=== PATIENT | female | born 1985 | race American Indian/Alaskan Native ===

== ENCOUNTER 2019-10-04 09:28 | Emergency (ER) | payer SELFPAY ==
[2019-10-04] MEDS ORDERED: TETANUS,DIPH,PERTUSS(ACELL) VACCINE 0.5 ML SYRINGE IM ONE (09:42)
[2019-10-04] MEDS ORDERED: LET TOPICAL (LIDOCAINE/EPINEPHRINE/TETRACAINE) 3 ML TP ONE (09:42)
--- NOTE | 2019-10-04 09:47 | Emergency Department Report ---
ED General Adult HPI - General Chief complaint: Fall Stated complaint: RT EYE CUT Time Seen by Provider: 10/04/19 09:41 Source: patient Mode of arrival: Ambulatory Limitations: No Limitations - History of Present Illness Initial comments: 33-year-old -Beninese female patient complains of right facial laceration after falling in the toe about 1.5 hours ago. She denies any loss of consciousness, headaches, vision changes, dizziness, nausea/vomiting, memory loss, or use of blood thinners. She is unsure about her last tetanus shot. She rates the pain at a 2/10 in severity. -: Sudden Location: face Radiation: non-radiation Severity scale (0 -10): 2 Consistency: constant Treatments Prior to Arrival: none - Related Data Allergies Allergy/AdvReac Type Severity Reaction Status Date / Time No Known Allergies Allergy Unverified 10/04/19 09:34 ED Review of Systems ROS: Stated complaint: RT EYE CUT Other details as noted in HPI Comment: All other systems reviewed and negative Skin: as per HPI ED Past Medical Hx - Past Medical History Previous Medical History?: No - Surgical History Additional Surgical History: , biopsy - Social History Smoking Status: Current Every Day Smoker Substance Use Type: None ED Physical Exam - General Limitations: No Limitations General appearance: alert, in no apparent distress - Head Head exam: Present: normocephalic - Expanded Head Exam Expanded Head exam: Present: laceration (at end of right eyebrow about 3 cm in size, nonbleeding). Absent: contusion, racoon eyes, neves's sign - Eye Eye exam: Present: normal appearance, PERRL, EOMI. Absent: conjunctival injection - Neck Neck exam: Present: normal inspection - Respiratory Respiratory exam: Present: normal lung sounds bilaterally. Absent: respiratory distress - Cardiovascular Cardiovascular Exam: Present: regular rate, normal rhythm - GI/Abdominal GI/Abdominal exam: Present: soft. Absent: tenderness - Rectal Rectal exam: Present: deferred - Extremities Exam Extremities exam: Present: full ROM - Back Exam Back exam: Present: full ROM. Absent: paraspinal tenderness, vertebral tenderness - Neurological Exam Neurological exam: Present: alert, oriented X3, CN II-XII intact, normal gait. Absent: motor sensory deficit - Psychiatric Psychiatric exam: Present: normal affect, normal mood - Skin Skin exam: Present: warm, dry, normal color. Absent: rash ED Course Vital Signs 10/04/19 09:34 Temperature 98.1 F Pulse Rate 86 Respiratory 18 Rate Blood Pressure 179/108 O2 Sat by Pulse 100 Oximetry - Laceration /Wound Repair Face Wound Location: face Wound's Depth, Shape: linear Wound Explored: no foreign body removed Irrigated w/ Saline (ccs): 3 Betadine Prep?: Yes Anesthesia: Lidocaine w/ Epi (LET topical ) Volume Anesthetic (ccs): 3 Wound Repaired With: Steri-strips, Dermabond Layer Closure?: No Sterile Dressing Applied?: Yes Progress: Patient tolerated procedure well ED Medical Decision Making - Medical Decision Making Patient here for fall with head laceration occurring today. She denies any loss of consciousness, headache, or any other symptoms. [place] CT had a rule score = 0. Laceration repair using Dermabond and Steri-Strips. Patient's blood pressure noted to be elevated at 179/108improved on recheck to 138/100. Patient states she has significant family history of hypertension, however denies any personal history of hypertension. Discuss ways to improve blood pressure and importance of follow-up with primary care for blood pressure recheck and possible diagnosis of hypertension. Discussed strict return precautions in detail and wound care instructions, patient states understanding. Critical care attestation.: If time is entered above; I have spent that time in minutes in the direct care of this critically ill patient, excluding procedure time. ED Disposition Clinical Impression: Elevated blood pressure reading Laceration of head Qualifiers: Encounter type: initial encounter Location of open wound of head: other part of head Foreign body presence: without foreign body Qualified Code(s): S01.81XA - Laceration without foreign body of other part of head, initial encounter Disposition: DC-01 TO HOME OR SELFCARE Is pt being admited?: No Condition: Stable Instructions: Laceration (ED), Skin Adhesive Care (ED), Hypertension (ED) Referrals: [facility] [Provider Group] - 3-5 Days
[2019-10-04] MEDS ORDERED: HYDROGEN PEROXIDE 118 ML SOLUTION TP ONE (09:55)
[2019-10-04 11:24] VITALS: BP 133/98
== END 2019-10-04 11:02 | disposition home or self-care (01) ==
LOC: ED 09:28
DX: S01.81XA Laceration without foreign body of other part of head, initial encounter (principal); F17.200 Nicotine dependence, unspecified, uncomplicated; W18.2XXA Fall in (into) shower or empty bathtub, initial encounter; Y93.89 Activity, other specified; Y92.89 Other specified places as the place of occurrence of the external cause; Y99.8 Other external cause status
CPT/HCPCS: 90471; 90715

== ENCOUNTER 2020-02-06 09:38 | Emergency (ER) | payer SELFPAY ==
[2020-02-06] MEDS ORDERED: ONDANSETRON 4 MG ODT TAB PO ONE (11:59)
--- NOTE | 2020-02-06 11:59 | Emergency Department Report ---
ED General Adult HPI - General Chief complaint: Upper Respiratory Infection Stated complaint: FLU SYM Time Seen by Provider: 02/06/20 10:40 Source: patient Mode of arrival: Ambulatory Limitations: No Limitations - History of Present Illness Initial comments: 34-year-old -Kitt[place] female patient presents with complaints of sudden onset of chills/sweats, nausea/vomiting, and soft stools yesterday. She denies any cough/shortness of breath, chest pain, melena/hematochezia, hematemesis/coffee-ground emesis, recent antibiotic use, or travel outside the country or contact with individuals with travel outside the country or known Covid19. She does admit to lower abdominal pain that she rates as a 7/10 in severity and also admits to urinary frequency without dysuria or hematuria. Patient states she did take TheraFlu that contain Tylenol prior to arrival in the ED. -: Sudden - Related Data Previous Rx's Medication Instructions Recorded Last Taken Type Famotidine [Pepcid] 20 mg PO BID 2 Days #4 tablet 02/06/20 Unknown Rx Ondansetron [Zofran Odt] 4 mg PO Q8HR PRN #15 tab.rapdis 02/06/20 Unknown Rx Allergies Allergy/AdvReac Type Severity Reaction Status Date / Time No Known Allergies Allergy Verified 02/06/20 14:07 ED Review of Systems ROS: Stated complaint: FLU SYM Other details as noted in HPI Constitutional: chills, diaphoresis, malaise, weakness. denies: fever ENT: denies: ear pain Respiratory: denies: cough, shortness of breath Cardiovascular: denies: chest pain, edema, syncope Genitourinary: frequency. denies: dysuria, hematuria, discharge Musculoskeletal: myalgia. denies: back pain Skin: denies: rash, lesions, change in color Neurological: denies: headache Hematological/Lymphatic: denies: swollen glands ED Past Medical Hx - Past Medical History Previous Medical History?: No - Surgical History Past Surgical History?: Yes Additional Surgical History: , biopsy - Social History Smoking Status: Current Every Day Smoker Substance Use Type: None - Medications Home Medications: Home Medications Medication Instructions Recorded Confirmed Last Taken Type Famotidine [Pepcid] 20 mg PO BID 2 Days #4 tablet 02/06/20 Unknown Rx Ondansetron [Zofran Odt] 4 mg PO Q8HR PRN #15 tab.rapdis 02/06/20 Unknown Rx ED Physical Exam - General Limitations: No Limitations ED Course Vital Signs 02/06/20 02/06/20 02/06/20 09:44 14:01 16:09 Temperature 98.6 F 102.6 F H 99.9 F H Pulse Rate 105 H 108 H 109 H Respiratory 16 20 20 Rate Blood Pressure 128/80 O2 Sat by Pulse 98 100 99 Oximetry ED Medical Decision Making - Lab Data Result diagrams: 02/06/20 14:20 02/06/20 14:20 Lab Results 02/06/20 02/06/20 Range/Units Unknown Unknown Urine Color Nelly (Yellow) Urine Turbidity Slightly-cloudy (Clear) Urine pH 5.0 (5.0-7.0) Ur Specific Excel 1.029 (1.003-1.030) Urine Protein <15 mg/dl (Negative) mg/dL Urine Glucose (UA) Neg (Negative) mg/dL Urine Ketones Neg (Negative) mg/dL Urine Blood Sm (Negative) Urine Nitrite Neg (Negative) Urine Bilirubin Neg (Negative) Urine Urobilinogen 4.0 (<2.0) mg/dL Ur Leukocyte Esterase Neg (Negative) Urine WBC (Auto) 2.0 (0.0-6.0) /HPF Urine RBC (Auto) 3.0 (0.0-6.0) /HPF U Epithel Cells (Auto) 3.0 (0-13.0) /HPF Urine Bacteria (Auto) 1+ (Negative) /HPF Urine Mucus 3+ /HPF Urine HCG, Qual Negative (Negative) Influenza A (Rapid) Negative (Negative) Influenza B (Rapid) Negative (Negative) - Radiology Data Radiology results: report reviewed Cat Scan Report Signed Patient: ALISSON AARON MR#: [id number] : 1985 Acct:[id number] Age/Sex: 34 / F ADM Date: 02/06/20 Loc: ED Attending Dr: Ordering Physician: HILARIO HA Date of Service: 02/06/20 Procedure(s): CT abdomen pelvis w con Accession Number(s): [id number] cc: HILARIO HA CT ABDOMEN AND PELVIS WITH CONTRAST INDICATION: Lower abdominal pain with fever. COMPARISON: No relevant prior imaging study available. TECHNIQUE: Axial, coronal and sagittal CT imaging of the abdomen and pelvis was performed after injection of 100 cc Omnipaque [address] scans at this location are performed using CT dose reduction for ALARA by means of automated exposure control. FINDINGS: LOWER CHEST: No significant abnormality. LIVER: No significant abnormality. BILIARY: No significant abnormality. PANCREAS: No significant abnormality. SPLEEN: No significant abnormality. ADRENALS: No significant abnormality. KIDNEYS AND URETERS: No significant abnormality. GI TRACT: No significant abnormality of the stomach, small bowel or colon. Unremarkable appendix. PERITONEUM: No free fluid. No free air. No fluid collection. LYMPH NODES: No significant adenopathy. VASCULATURE: No significant abnormality. URINARY BLADDER: No significant abnormality. REPRODUCTIVE ORGANS: The uterus is markedly enlarged, lobulated and heterogeneous, likely due to the presence of multiple large fibroids. No additional significant abnormality. ADDITIONAL FINDINGS: None. SKELETAL SYSTEM: No significant abnormality. IMPRESSION: 1. No acute abnormality of the abdomen or pelvis. 2. Enlarged uterus containing multiple probable fibroids. - Medical Decision Making Patient here with complaints of sudden onset of body aches/chills and nausea/vomiting and loose stools since yesterday. She denies any fever, cough, shortness of breath or red flag symptoms. Rapid flu is negative. Moderate lower abdominal tenderness noted on exam-UA is normal. Patient states this pain does feel like her fibroid pain. No McBurney point tenderness noted on exam. CBC shows a white count of 23 and patient's temperature increased to 102. CT abdomen is normal. Patient given oral Zofran and is now tolerating crackers and juice without difficulty. Heart rate now normal after 2 L of saline. Temperature is now 98.8. Patient states she is feeling much better. She is stable for discharge home with treatment for viral syndrome. Recommend follow- up with primary care provider within 3 days. Discussed the importance of rehydration and caloric intake to help fight the virus. Also discussed very strict return precautions in great detail with patient who verbalizes understanding. Critical care attestation.: If time is entered above; I have spent that time in minutes in the direct care of this critically ill patient, excluding procedure time. ED Disposition Clinical Impression: Viral syndrome, Gastroenteritis Disposition: DC-01 TO HOME OR SELFCARE Is pt being admited?: No Condition: Stable Instructions: Gastroenteritis (ED), Viral Syndrome (ED) Prescriptions: Famotidine [Pepcid] 20 mg PO BID 2 Days #4 tablet Ondansetron [Zofran Odt] 4 mg PO Q8HR PRN #15 tab.rapdis PRN Reason: Nausea Referrals: PRIMARY CARE,MD [Primary Care Provider] - 2-3 Days Forms: Work/School Release Form(ED)
[2020-02-06 12:48] LABS: Bacteria,Urine 1+ /HPF (Negative); Bilirubin,Urine NEG (Negative); Blood,Urine SM (Negative); Color,Urine Amber (Yellow); Mucus,Urine 3+ /HPF; Protein,Urine <15 mg/dL mg/dL (Negative)
[2020-02-06 12:49] LABS: HCG Qualitative,Urine Negative (Negative)
[2020-02-06] MEDS ORDERED: FAMOTIDINE 20 MG TAB PO ONE (13:34)
[2020-02-06] MEDS ORDERED: ACETAMINOPHEN 325 MG TAB PO ONE (14:03)
[2020-02-06] MEDS ORDERED: SODIUM CHLORIDE 0.9% 1000 ML 1,000 ML IV ONE ×2 (14:04→16:12)
[2020-02-06] MEDS ORDERED: ACETAMINOPHEN 325 MG TAB ONE (14:06)
[2020-02-06 14:30] LABS: Hematocrit 36.7 % (30.3-42.9); Hemoglobin 12.5 gm/dl (10.1-14.3); Mean Corpuscular HGB Conc 34 % (30-34); Mean Corpuscular Volume 77 fl (79-97); Platelet Count 337 K/mm3 (140-440); Red Blood Count 4.77 M/mm3 (3.65-5.03); Red Cell Distribution Width 16.9 % (13.2-15.2)
[2020-02-06 14:53] LABS: Alanine Aminotransferase 12 units/L (7-56); Albumin 3.9 g/dL (3.9-5); BUN/Creatinine Ratio 13; Blood Urea Nitrogen 9 mg/dL (7-17); Calcium 9.1 mg/dL (8.4-10.2); Hemolysis Index 9
[2020-02-06 15:16] LABS: Band Neutrophils # (Manual) 0.2 K/mm3; Eosinophils % (Manual) 0 % (0.0-4.3); Total Cells Counted 100
[2020-02-06 15:17] LABS: Anisocytosis 1+
[2020-02-06 15:18] LABS: Hypochromasia Few; Large Platelets Few; Platelet Estimate Consistent w Auto
--- NOTE | 2020-02-06 15:41 | Cat Scan Report ---
CT ABDOMEN AND PELVIS WITH CONTRAST INDICATION: Lower abdominal pain with fever. COMPARISON: No relevant prior imaging study available. TECHNIQUE: Axial, coronal and sagittal CT imaging of the abdomen and pelvis was performed after inje ction of 100 cc Omnipaque [address] scans at this location are performed using CT dose re duction for ALARA by means of automated exposure control. FINDINGS: LOWER CHEST: No significant abnormality. LIVER: No significant abnormality. BILIARY: No significant abnormality. PANCREAS: No significant abnormality. SPLEEN: No significant abnormality. ADRENALS: No significant abnormality. KIDNEYS AND URETERS: No significant abnormality. GI TRACT: No significant abnormality of the stomach, small bowel or colon. Unremarkable appendix. PERITONEUM: No free fluid. No free air. No fluid collection. LYMPH NODES: No significant adenopathy. VASCULATURE: No significant abnormality. URINARY BLADDER: No significant abnormality. REPRODUCTIVE ORGANS: The uterus is markedly enlarged, lobulated and heterogeneous, likely due to the presence of multiple large fibroids. No additional significant abnormality. ADDITIONAL FINDINGS: None. SKELETAL SYSTEM: No significant abnormality. IMPRESSION: 1. No acute abnormality of the abdomen or pelvis. 2. Enlarged uterus containing multiple probable fibroids. Signer Name: Govind Joe MD Signed: 02/06/2020 3:36 PM Workstation Name: [id number]
--- NOTE | 2020-02-06 16:38 | XRay Report ---
CHEST 1 VIEW INDICATION: fever. COMPARISON: None. FINDINGS: Support devices: None. Heart: Borderline heart size. Lungs/Pleura: No acute air space or interstitial disease. Additional findings: None. IMPRESSION: Borderline heart size. Signer Name: Reza Richardson MD Signed: 02/06/2020 4:34 PM Workstation Name: [id number]
[2020-02-06 18:14] VITALS: BP 134/84
== END 2020-02-06 18:13 | disposition home or self-care (01) ==
LOC: ED 09:38
DX: K21.9 Gastro-esophageal reflux disease without esophagitis (principal); B34.9 Viral infection, unspecified; F17.200 Nicotine dependence, unspecified, uncomplicated; Z98.890 Other specified postprocedural states
CPT/HCPCS: 36415; 71045; 74177; 80053; 81001; 81025; 83690; 85007; 85025; 87400; 96360; 96361; 99284; J7030; Q0162; Q9967

== ENCOUNTER 2020-02-29 20:57 | Emergency (ER) | payer MEDICAID ==
--- NOTE | 2020-02-29 21:26 | Emergency Department Report ---
ED ENT HPI - General Chief complaint: Earache Stated complaint: PUS IN R EAR Time Seen by Provider: 02/29/20 21:21 Source: patient Mode of arrival: Ambulatory Limitations: No Limitations - History of Present Illness Initial comments: pt is a 34 yo female who presents with right ear pain that began two days ago. she states she is having right ear drainage. she has associated pain surrounding the ear. she denies any fever, vomiting, diarrhea, sore throat, CP, SOB. PMHx none. no allergies to meds. LNMP: 2 weeks. no recent abx. denies frequent ear infections. - Related Data Previous Rx's Medication Instructions Recorded Last Taken Type Famotidine [Pepcid] 20 mg PO BID 2 Days #4 tablet 02/06/20 Unknown Rx Ondansetron [Zofran Odt] 4 mg PO Q8HR PRN #15 tab.rapdis 02/06/20 Unknown Rx Amoxicillin/Potassium Clav 1 each PO BID 10 Days #20 tablet 02/29/20 Unknown Rx [Augmentin 875-125 Tablet] Ofloxacin 0.3% [Floxin 0.3% Otic] 10 drop AD DAILY 10 Days #1 bottle 02/29/20 Unknown Rx Allergies Allergy/AdvReac Type Severity Reaction Status Date / Time No Known Allergies Allergy Verified 02/06/20 14:07 ED Dental HPI - General Chief complaint: Earache Stated complaint: PUS IN R EAR Time Seen by Provider: 02/29/20 21:21 Source: patient Mode of arrival: Ambulatory Limitations: No Limitations - Related Data Previous Rx's Medication Instructions Recorded Last Taken Type Famotidine [Pepcid] 20 mg PO BID 2 Days #4 tablet 02/06/20 Unknown Rx Ondansetron [Zofran Odt] 4 mg PO Q8HR PRN #15 tab.rapdis 02/06/20 Unknown Rx Amoxicillin/Potassium Clav 1 each PO BID 10 Days #20 tablet 02/29/20 Unknown Rx [Augmentin 875-125 Tablet] Ofloxacin 0.3% [Floxin 0.3% Otic] 10 drop AD DAILY 10 Days #1 bottle 02/29/20 Unknown Rx Allergies Allergy/AdvReac Type Severity Reaction Status Date / Time No Known Allergies Allergy Verified 02/06/20 14:07 ED Review of Systems ROS: Stated complaint: PUS IN R EAR Other details as noted in HPI Comment: All other systems reviewed and negative ED Past Medical Hx - Past Medical History Previous Medical History?: No - Surgical History Past Surgical History?: Yes Additional Surgical History: , biopsy - Social History Smoking Status: Current Every Day Smoker Substance Use Type: None - Medications Home Medications: Home Medications Medication Instructions Recorded Confirmed Last Taken Type Famotidine [Pepcid] 20 mg PO BID 2 Days #4 tablet 02/06/20 Unknown Rx Ondansetron [Zofran Odt] 4 mg PO Q8HR PRN #15 tab.rapdis 02/06/20 Unknown Rx Amoxicillin/Potassium Clav 1 each PO BID 10 Days #20 tablet 02/29/20 Unknown Rx [Augmentin 875-125 Tablet] Ofloxacin 0.3% [Floxin 0.3% Otic] 10 drop AD DAILY 10 Days #1 bottle 02/29/20 Unknown Rx ED Physical Exam - General Limitations: No Limitations General appearance: alert, in no apparent distress - Head Head exam: Present: atraumatic, normocephalic - Eye Eye exam: Present: normal appearance - ENT ENT exam: Present: normal orophraynx, mucous membranes moist, other (left TM and canal are normal, right TM is erythematous with purulent present, right canal is erythematous with scaling present, no obvious TM perforation, no mastoid ttp, there is small amount of edema present to the right pre auricular area) - Respiratory Respiratory exam: Present: normal lung sounds bilaterally. Absent: respiratory distress, wheezes, rales, rhonchi, stridor, chest wall tenderness, accessory muscle use, decreased breath sounds, prolonged expiratory - Cardiovascular Cardiovascular Exam: Present: regular rate, normal rhythm, normal heart sounds. Absent: systolic murmur, diastolic murmur, rubs, gallop - Neurological Exam Neurological exam: Present: alert, oriented X3 - Psychiatric Psychiatric exam: Present: normal affect, normal mood - Skin Skin exam: Present: warm, dry, intact ED Course Vital Signs 02/29/20 02/29/20 02/29/20 21:02 21:43 21:48 Temperature 98.8 F 99.0 F Pulse Rate 107 H 91 H Respiratory 20 20 20 Rate Blood Pressure 182/110 168/114 O2 Sat by Pulse 99 97 100 Oximetry ED Medical Decision Making - Lab Data Vital Signs 02/29/20 02/29/20 02/29/20 21:02 21:43 21:48 Temperature 98.8 F 99.0 F Pulse Rate 107 H 91 H Respiratory 20 20 20 Rate Blood Pressure 182/110 168/114 O2 Sat by Pulse 99 97 100 Oximetry - Medical Decision Making pt is a 34 yo female who presents with right ear pain that began two days ago. she states she is having right ear drainage. she has associated pain surrounding the ear. she denies any fever, vomiting, diarrhea, sore throat, CP, SOB. PMHx none. no allergies to meds. LNMP: 2 weeks. no recent abx. denies frequent ear infections. on exam: left TM and canal are normal, right TM is erythematous with purulent present, right canal is erythematous with scaling present, no obvious TM perforation, no mastoid ttp, there is small amount of edema present to the right pre auricular area. Examination consistent with otitis media and otitis externa. Patient given Augmentin and antibiotic eardrops. advised pt please use medication as prescribed. may take tylenol or ibuprofen as needed for pain. increase your water intake. follow up with a primary care doctor in the next 3-5 days for reexamination and ear recheck. return to the emergency room for any new or worsening symptoms. Patient's initial blood pressure elevated, repeat has improved but continues to be hypertensive, patient is asymptomatic at this time, discussed the need for patient to see a primary care doctor for further evaluation and to see if she needs medication management, discussed with patient to take her blood pressure 3 times a day and keep a log and take this to the primary care doctor, eat a low- sodium diet, increase her water intake, incorporate 30 minutes of daily exercise a day. Critical care attestation.: If time is entered above; I have spent that time in minutes in the direct care of this critically ill patient, excluding procedure time. ED Disposition Clinical Impression: Otitis media Qualifiers: Otitis media type: suppurative Chronicity: acute Laterality: right Recurrence: non-recurrent Spontaneous tympanic membrane rupture: without spontaneous rupture Qualified Code(s): H66.001 - Acute suppurative otitis media without spontaneous rupture of ear drum, right ear Otitis externa Qualifiers: Otitis externa type: unspecified type Chronicity: acute Laterality: right Qual ified Code(s): H60.501 - Unspecified acute noninfective otitis externa, right ear Disposition: DC-01 TO HOME OR SELFCARE Is pt being admited?: No Does the pt Need Aspirin: No Condition: Stable Instructions: Otitis Externa (ED), Otitis Media (ED) Additional Instructions: please use medication as prescribed. may take tylenol or ibuprofen as needed for pain. increase your water intake. follow up with a primary care doctor in the next 3-5 days for reexamination and ear recheck. return to the emergency room for any new or worsening symptoms. Prescriptions: Amoxicillin/Potassium Clav [Augmentin 875-125 Tablet] 1 each PO BID 10 Days #20 tablet Ofloxacin 0.3% [Floxin 0.3% Otic] 10 drop AD DAILY 10 Days #1 bottle Referrals: HUANG VICKERS MD [Staff Physician] - 3-5 Days [facility] [Provider Group] - 3-5 Days [facility] [Outside] - 3-5 Days [facility] [Outside] - 3-5 Days Time of Disposition: 21:26 Print Language: GEORGIAN
[2020-02-29 21:44] VITALS: BP 168/114
== END 2020-02-29 21:55 | disposition home or self-care (01) ==
LOC: ED 20:57
DX: H66.001 Acute suppurative otitis media without spontaneous rupture of ear drum, right ear (principal); H60.501 Unspecified acute noninfective otitis externa, right ear; F17.200 Nicotine dependence, unspecified, uncomplicated; Z79.899 Other long term (current) drug therapy
CPT/HCPCS: 99282

== ENCOUNTER 2021-04-02 09:35 | Emergency (ER) | payer MEDICAID, OTHER, SELFPAY ==
[2021-04-02] MEDS ORDERED: ACETAMINOPHEN 325 MG TAB PO ONE (09:50)
--- NOTE | 2021-04-02 09:51 | Event Note ---
ED Screening Note Date of service: 04/02/21 Time: 09:49 ED Screening Note: 35 y o f presents with 1 week of fever, eye swelling was seen by pcp last week , no relief with meds similar episode last year tachy, fever, elev bp This initial assessment/diagnostic orders/clinical plan/treatment(s) is/are subject to change based on patients health status, clinical progression and re- assessment by fellow clinical providers in the ED. Further treatment and workup at subsequent clinical providers discretion. Patient/guardian urged not to elope from the ED as their condition may be serious if not clinically assessed and managed. Initial orders include: labs, fliuds, tylenol
[2021-04-02 10:04] LABS: Basophils % (Auto) 0.5 % (0.0-1.8); Eosinophils # (Auto) 0.1 K/mm3 (0.0-0.4); Eosinophils % (Auto) 1.2 % (0.0-4.3); Hematocrit 34.5 % (30.3-42.9); Hemoglobin 11.7 gm/dl (10.1-14.3); Lymphocytes # (Auto) 1.6 K/mm3 (1.2-5.4); Lymphocytes % (Auto) 25.8 % (13.4-35.0); Mean Corpuscular HGB Conc 34 % (30-34); Mean Corpuscular Volume 71 fl (79-97); Monocytes # (Auto) 0.2 K/mm3 (0.0-0.8); Monocytes % (Auto) 3.7 % (0.0-7.3); Platelet Count 475 K/mm3 (140-440); Red Blood Count 4.85 M/mm3 (3.65-5.03); Red Cell Distribution Width 16.8 % (13.2-15.2)
[2021-04-02] MEDS ORDERED: FAMOTIDINE 20 MG/2 ML INJ IV ONE (10:14)
[2021-04-02] MEDS ORDERED: methylPREDNISolone Sod Succinate 125 MG/2 ML INJ IV ONE (10:14)
[2021-04-02] MEDS ORDERED: hydrALAZINE 20 MG/1 ML INJ IV ONE (10:14)
--- NOTE | 2021-04-02 10:19 | Emergency Department Report ---
HPI - General Chief Complaint: Pain General Time Seen by Provider: 04/02/21 10:04 - HPI HPI: This is a 35-year-old -[place] female who presents to the emergency department with a complaint of a "lupus flareup." The patient has left eyelid swelling, a fever and body aches. The left eyelid has been swollen for the past 2 weeks. Prior to this the patient had the same issue with her right eye. Initially she saw her primary care physician for it, Dr. Chow, and was placed on amoxicillin and prednisone without much relief. She then went to see her bread jockey, Dr. Jacinto of [facility], and was placed on a steroid eyedrop. She used this eyedrop, along with her Flonase, and says that the right eye swelling went down. It was at this time that the left eyelid swelling began. Her symptoms are also associated with some nausea without vomiting, and she complains of some irritation inside of her mouth. She denies any cough, shortness of breath, chest pain, lower extremity swelling, dysuria, diarrhea. The patient also has a history of hypertension and admits that she did not take her blood pressure medication this morning. She takes hydrochlorothiazide. When the left eyelid is open, the patient denies any blur riness or change in vision. She also says that the left eyelid, although swollen, is not painful. ED Past Medical Hx - Past Medical History Previous Medical History?: Yes Hx Hypertension: Yes Additional medical history: Lupus - Surgical History Past Surgical History?: Yes Additional Surgical History: , thyroid biopsy - Social History Smoking Status: Current Every Day Smoker Substance Use Type: Alcohol - Medications Home Medications: Home Medications Medication Instructions Recorded Confirmed Last Taken Type Famotidine [Pepcid] 20 mg PO BID 2 Days #4 tablet 02/06/20 Unknown Rx Ondansetron [Zofran Odt] 4 mg PO Q8HR PRN #15 tab.rapdis 02/06/20 Unknown Rx Ofloxacin 0.3% [Floxin 0.3% Otic] 10 drop AD DAILY 10 Days #1 bottle 02/29/20 Unknown Rx Amoxicillin/Potassium Clav 1 each PO BID 10 Days #14 tablet 04/02/21 Unknown Rx [Augmentin 875-125 Tablet] predniSONE [Deltasone] 20 mg PO BID #8 tab 04/02/21 Unknown Rx ED Review of Systems ROS: Stated complaint: LUPUS FLARE UP Other details as noted in HPI Comment: All other systems reviewed and negative Constitutional: fever. denies: chills Eyes: other (Eyelid swelling). denies: eye pain, vision change ENT: denies: ear pain, throat pain Respiratory: denies: cough, shortness of breath Cardiovascular: denies: chest pain, palpitations Gastrointestinal: denies: abdominal pain, vomiting Genitourinary: denies: dysuria, discharge Musculoskeletal: myalgia. denies: joint swelling Skin: denies: rash, lesions Neurological: denies: headache, numbness, paresthesias Physical Exam - Physical Exam Vital Signs: Vital Signs 04/02/21 09:38 Temperature 101.7 F H Pulse Rate 111 H Respiratory 18 Rate Blood Pressure 184/118 O2 Sat by Pulse 100 Oximetry Physical Exam: GENERAL: The patient is well-developed well-nourished. HENT: Normocephalic. Atraumatic. Patient has moist mucous membranes. No tonsillar hypertrophy, erythema or exudates. The patient has some aphthous ulcers seen inside of her lower lip and along the gumline. EYES: Extraocular motions are intact. Pupils equal reactive to light bilaterally. There is moderate left upper eyelid swelling. NECK: Supple. Trachea is midline. CHEST/LUNGS: Clear to auscultation. There is no respiratory distress noted. HEART/CARDIOVASCULAR: Regular. There is no tachycardia. There is no murmur. ABDOMEN: Abdomen is soft, nontender. Patient has normal bowel sounds. There is no abdominal distention. SKIN: Skin is warm and dry. NEURO: The patient is awake, alert, and oriented. The patient is cooperative. The patient has no focal neurologic deficits. Normal speech. MUSCULOSKELETAL: There is no tenderness or deformity. There is no limitation range of motion. ED Course Vital Signs 04/02/21 09:38 Temperature 101.7 F H Pulse Rate 111 H Respiratory 18 Rate Blood Pressure 184/118 O2 Sat by Pulse 100 Oximetry ED Medical Decision Making - Lab Data Result diagrams: 04/02/21 09:52 04/02/21 09:52 Lab Results 04/02/21 04/02/21 04/02/21 Range/Units 09:52 09:52 09:52 WBC 6.0 (4.5-11.0) K/mm3 RBC 4.85 (3.65-5.03) M/mm3 Hgb 11.7 (10.1-14.3) gm/dl Hct 34.5 (30.3-42.9) % MCV 71 L (79-97) fl MCH 24 L (28-32) pg MCHC 34 (30-34) % RDW 16.8 H (13.2-15.2) % Plt Count 475 H (140-440) K/mm3 Lymph % (Auto) 25.8 (13.4-35.0) % [place] % (Auto) 3.7 (0.0-7.3) % Eos % (Auto) 1.2 (0.0-4.3) % Baso % (Auto) 0.5 (0.0-1.8) % Lymph # (Auto) 1.6 (1.2-5.4) K/mm3 [place] # (Auto) 0.2 (0.0-0.8) K/mm3 Eos # (Auto) 0.1 (0.0-0.4) K/mm3 Baso # (Auto) 0.0 (0.0-0.1) K/mm3 Seg Neutrophils % 68.8 (40.0-70.0) % Seg Neutrophils # 4.2 (1.8-7.7) K/mm3 Sodium 135 L (137-145) mmol/L Potassium 3.0 L (3.6-5.0) mmol/L Chloride 96.5 L (98-107) mmol/L Carbon Dioxide 23 (22-30) mmol/L Anion Gap 19 mmol/L BUN 5 L (7-17) mg/dL Creatinine 0.6 (0.6-1.2) mg/dL Estimated GFR > 60 ml/min BUN/Creatinine Ratio 8 % Glucose 115 H (65-100) mg/dL Lactic Acid 1.10 (0.7-2.0) mmol/L Calcium 8.5 (8.4-10.2) mg/dL Total Bilirubin 0.30 (0.1-1.2) mg/dL AST 26 (5-40) units/L ALT 15 (7-56) units/L Alkaline Phosphatase 95 (35-129) units/L Total Protein 7.7 (6.3-8.2) g/dL Albumin 3.6 L (3.9-5) g/dL Albumin/Globulin Ratio 0.9 % TSH (0.270-4.200) mlU/mL Free T4 (0.76-1.46) ng/dL 04/02/21 04/02/21 Range/Units 09:52 09:52 WBC (4.5-11.0) K/mm3 RBC (3.65-5.03) M/mm3 Hgb (10.1-14.3) gm/dl Hct (30.3-42.9) % MCV (79-97) fl MCH (28-32) pg MCHC (30-34) % RDW (13.2-15.2) % Plt Count (140-440) K/mm3 Lymph % (Auto) (13.4-35.0) % [place] % (Auto) (0.0-7.3) % Eos % (Auto) (0.0-4.3) % Baso % (Auto) (0.0-1.8) % Lymph # (Auto) (1.2-5.4) K/mm3 [place] # (Auto) (0.0-0.8) K/mm3 Eos # (Auto) (0.0-0.4) K/mm3 Baso # (Auto) (0.0-0.1) K/mm3 Seg Neutrophils % (40.0-70.0) % Seg Neutrophils # (1.8-7.7) K/mm3 Sodium (137-145) mmol/L Potassium (3.6-5.0) mmol/L Chloride (98-107) mmol/L Carbon Dioxide (22-30) mmol/L Anion Gap mmol/L BUN (7-17) mg/dL Creatinine (0.6-1.2) mg/dL Estimated GFR ml/min BUN/Creatinine Ratio % Glucose (65-100) mg/dL Lactic Acid (0.7-2.0) mmol/L Calcium (8.4-10.2) mg/dL Total Bilirubin (0.1-1.2) mg/dL AST (5-40) units/L ALT (7-56) units/L Alkaline Phosphatase (35-129) units/L Total Protein (6.3-8.2) g/dL Albumin (3.9-5) g/dL Albumin/Globulin Ratio % TSH 0.105 L (0.270-4.200) mlU/mL Free T4 1.08 (0.76-1.46) ng/dL - Radiology Data Radiology results: image reviewed interpreted by me: Chest x-ray does not show any acute process. There are no pleural effusions, obvious pneumonia and there is no pneumothorax. No significant cardiomegaly. - Medical Decision Making This patient presents to the emergency department with a low-grade fever, body aches, and a 2-week history of left eyelid swelling. Altogether the patient feels that this is a lupus flareup as that was a diagnosis she was given in the past with similar symptoms. The patient previously had a 2-week history of right eyelid swelling that improved after she was on steroid eyedrops from her bread jockey. There is moderate swelling of the left upper eyelid but it is not warm, fluctuant, and it is not tender to palpation or painful for the patient at all. When the eyelid is opened the patient has no blurriness or vis ual changes. She denies any eye pain. The patient's labs shows hypokalemia with a potassium of 3 that was replaced with potassium chloride. The patient has a slightly low TSH level but a normal free T4. No leukocytosis. She was given Tylenol, Solu-Medrol, Pepcid, and a dose of hydralazine. Upon reevaluation the patient is feeling slightly improved. The fever has resolved. A chest x-ray was done that does not show any pneumonia, or any other acute process. The patient has good outpatient follow-up with primary care and with ophthalmology. I recommended that she may need a shaper setter in the near future. She will be given a prescription for steroids and antibiotics. She will return to the emergency department with any worsening of her symptoms or with any acute distress. Critical Care Time: No Critical care attestation.: If time is entered above; I have spent that time in minutes in the direct care of this critically ill patient, excluding procedure time. ED Disposition Clinical Impression: Hypokalemia Hypertension Qualifiers: Hypertension type: essential hypertension Qualified Code(s): I10 - Essential (primary) hypertension Lupus (systemic lupus erythematosus) Qualifiers: Systemic lupus erythematosus type: unspecified Systemic lupus erythematosus organ involvement: unspecified Qualified Code(s): M32.9 - Systemic lupus erythematosus, unspecified Swelling of eyelid Qualifiers: Laterality: left Qualified Code(s): H02.846 - Edema of left eye, unspecified eyelid Disposition: DC-01 TO HOME OR SELFCARE Is pt being admited?: No Condition: Stable Instructions: Fever, Adult, Systemic Lupus Erythematosus, Adult, Potassium Content of Foods, Hypertension, Adult, Hypertension (ED) Additional Instructions: Please follow-up with your primary care physician and bread jockey in the next few days. Take all of your medications as prescribed. Try to stay away from foods that are high in salt and caffeinated products. Keep a blood pressure log. You can use Tylenol every 4-6 hours and ibuprofen every 6-8 hours, using the dosing on the back of the bottle, as needed for any fever or body aches. Return to the emergency department with any worsening of your symptoms, new or concerning symptoms not addressed during this current emergency department visit, or with any acute distress. Prescriptions: Amoxicillin/Potassium Clav [Augmentin 875-125 Tablet] 1 each PO BID 10 Days #14 tablet predniSONE [Deltasone] 20 mg PO BID #8 tab Referrals: [facility], [facility] [Other] - 2-3 Days PRIMARY CARE, [Primary Care Provider] - 2-3 Days Time of Disposition: 12:58
[2021-04-02 10:34] LABS: Alanine Aminotransferase 15 units/L (7-56); Albumin 3.6 g/dL (3.9-5); Blood Urea Nitrogen 5 mg/dL (7-17); Calcium 8.5 mg/dL (8.4-10.2); Hemolysis Index 0
[2021-04-02] MEDS ORDERED: POTASSIUM CHLORIDE ER 20 MEQ TAB PO ONE (10:35)
[2021-04-02 10:56] LABS: BUN/Creatinine Ratio 8
--- NOTE | 2021-04-02 11:10 | XRay Report ---
CHEST 1 VIEW 04/02/2021 10:39 AM INDICATION / CLINICAL INFORMATION: cough, fever. COMPARISON: 02/06/2020 FINDINGS: SUPPORT DEVICES: None. HEART / MEDIASTINUM: No significant abnormality. LUNGS / PLEURA: No significant pulmonary or pleural abnormality. No pneumothorax. ADDITIONAL FINDINGS: No significant additional findings. IMPRESSION: 1. No acute findings. Signer Name: Chaim Floyd MD Signed: 04/02/2021 11:06 AM Workstation Name: [email or web address]
[2021-04-02 13:09] VITALS: BP 132/84
== END 2021-04-02 13:09 | disposition home or self-care (01) ==
LOC: ED 09:35
DX: M32.9 Systemic lupus erythematosus, unspecified (principal); I10 Essential (primary) hypertension; H02.846 Edema of left eye, unspecified eyelid; E87.6 Hypokalemia; F17.200 Nicotine dependence, unspecified, uncomplicated; Z79.899 Other long term (current) drug therapy; Z98.890 Other specified postprocedural states
CPT/HCPCS: 36415; 71045; 80053; 82140; 84439; 84443; 85025; 96374; 96375; 99284; J0360; J2930

== ENCOUNTER 2021-04-20 17:36 | Emergency (ER) | payer SELFPAY ==
[2021-04-20] MEDS ORDERED: SODIUM CHLORIDE 0.9% 1000 ML 1,000 ML IV ONE (21:46)
[2021-04-20] MEDS ORDERED: dexAMETHasone 20 MG/5 ML VIAL IV ONE (21:47)
[2021-04-20] MEDS ORDERED: KETOROLAC 30 MG/1 ML INJ IV ONE (21:47)
--- NOTE | 2021-04-20 21:58 | Emergency Department Report ---
ED General Adult HPI - General Chief complaint: Medical Clearance Stated complaint: LUPUS Time Seen by Provider: 04/20/21 21:22 Source: patient Mode of arrival: Ambulatory Limitations: No Limitations - History of Present Illness Initial comments: Patient is a 35-year-old female past medical history of lupus who presents with left eyelid swelling and myalgias. Patient states that she has had left eye swelling previously before left eye swelling is moderate patient states that symptoms have been going on for last 3 days patient states that her body aches are moderate nothing makes them better nothing makes it worse. She states that her doctor Dr. Chow goes her steroids for her eyes which was previously swollen on the right eye. Patient states that she has an appointment with her physician tomorrow however because of the pain she has not really that much she feels dehydrated and the swelling in her eye is bothering her. Patient denies having any discharge or any blurry vision - Related Data Previous Rx's Medication Instructions Recorded Last Taken Type Famotidine [Pepcid] 20 mg PO BID 2 Days #4 tablet 02/06/20 Unknown Rx Ondansetron [Zofran Odt] 4 mg PO Q8HR PRN #15 tab.rapdis 02/06/20 Unknown Rx Ofloxacin 0.3% [Floxin 0.3% Otic] 10 drop AD DAILY 10 Days #1 bottle 02/29/20 Un known Rx Amoxicillin/Potassium Clav 1 each PO BID 10 Days #14 tablet 04/02/21 Unknown Rx [Augmentin 875-125 Tablet] Naproxen 375 mg PO BID #20 tablet 04/21/21 Unknown Rx predniSONE [Deltasone] 20 mg PO BID #10 tab 04/21/21 Unknown Rx Allergies Allergy/AdvReac Type Severity Reaction Status Date / Time No Known Allergies Allergy Verified 02/06/20 14:07 ED Review of Systems ROS: Stated complaint: LUPUS Other details as noted in HPI Constitutional: denies: chills, fever Eyes: denies: eye pain, eye discharge, vision change ENT: other (left eyewlid sawelling). denies: ear pain, throat pain Respiratory: denies: cough, shortness of breath, wheezing Cardiovascular: denies: chest pain, palpitations Endocrine: no symptoms reported Gastrointestinal: denies: abdominal pain, nausea, diarrhea Genitourinary: denies: urgency, dysuria, discharge Musculoskeletal: myalgia. denies: back pain, joint swelling, arthralgia Skin: denies: rash, lesions Neurological: denies: headache, weakness, paresthesias Psychiatric: denies: anxiety, depression Hematological/Lymphatic: denies: easy bleeding, easy bruising ED Past Medical Hx - Past Medical History Hx Hypertension: Yes Additional medical history: Lupus - Surgical History Additional Surgical History: , thyroid biopsy - Social History Smoking Status: Current Every Day Smoker Substance Use Type: None - Medications Home Medications: Home Medications Medication Instructions Recorded Confirmed Last Taken Type Famotidine [Pepcid] 20 mg PO BID 2 Days #4 tablet 02/06/20 Unknown Rx Ondansetron [Zofran Odt] 4 mg PO Q8HR PRN #15 tab.rapdis 02/06/20 Unknown Rx Ofloxacin 0.3% [Floxin 0.3% Otic] 10 drop AD DAILY 10 Days #1 bottle 02/29/20 Unknown Rx Amoxicillin/Potassium Clav 1 each PO BID 10 Days #14 tablet 04/02/21 Unknown Rx [Augmentin 875-125 Tablet] Naproxen 375 mg PO BID #20 tablet 04/21/21 Unknown Rx predniSONE [Deltasone] 20 mg PO BID #10 tab 04/21/21 Unknown Rx ED Physical Exam - General Limitations: No Limitations General appearance: alert, in no apparent distress - Head Head exam: Present: atraumatic, normocephalic - Eye Eye exam: Present: normal appearance, periorbital swelling (in left eyelid), other - ENT ENT exam: Present: mucous membranes moist - Neck Neck exam: Present: normal inspection - Respiratory Respiratory exam: Present: normal lung sounds bilaterally. Absent: respiratory distress - Cardiovascular Cardiovascular Exam: Present: regular rate, normal rhythm. Absent: systolic murmur, diastolic murmur, rubs, gallop - GI/Abdominal GI/Abdominal exam: Present: soft, normal bowel sounds - Extremities Exam Extremities exam: Present: normal inspection - Back Exam Back exam: Present: normal inspection - Neurological Exam Neurological exam: Present: alert, oriented X3 - Psychiatric Psychiatric exam: Present: normal affect, normal mood - Skin Skin exam: Present: warm, dry, intact, normal color. Absent: rash ED Course Vital Signs 04/20/21 04/20/21 04/20/21 19:38 21:31 21:40 Temperature 99.9 F H Pulse Rate 103 H 95 H 86 Respiratory 18 13 16 Rate Blood Pressure 122/78 119/99 Blood Pressure 119/99 [Left] O2 Sat by Pulse 98 100 100 Oximetry 04/20/21 04/20/21 04/20/21 21:45 22:01 22:07 Temperature Pulse Rate 87 87 Respiratory 17 12 18 Rate Blood Pressure 108/57 114/62 Blood Pressure [Left] O2 Sat by Pulse 99 100 Oximetry 04/20/21 04/20/21 04/20/21 22:15 22:19 22:29 Temperature 101.6 F H Pulse Rate 89 Respiratory 12 18 Rate Blood Pressure 110/79 Blood Pressure [Left] O2 Sat by Pulse 99 Oximetry 04/20/21 04/20/21 04/21/21 22:37 23:29 00:40 Temperature 99.5 F Pulse Rate Respiratory 18 18 Rate Blood Pressure Blood Pressure [Left] O2 Sat by Pulse Oximetry ED Medical Decision Making - Lab Data Result diagrams: 04/20/21 21:51 04/20/21 21:51 Lab Results 04/20/21 04/20/21 04/20/21 Range/Units 21:51 21:51 23:49 WBC 4.1 L (4.5-11.0) K/mm3 RBC 4.59 (3.65-5.03) M/mm3 Hgb 11.6 (10.1-14.3) gm/dl Hct 32.5 (30.3-42.9) % MCV 71 L (79-97) fl MCH 25 L (28-32) pg MCHC 36 H (30-34) % RDW 18.7 H (13.2-15.2) % Plt Count 221 (140-440) K/mm3 Lymph % (Auto) 21.2 (13.4-35.0) % [place] % (Auto) 2.8 (0.0-7.3) % Eos % (Auto) 0.0 (0.0-4.3) % Baso % (Auto) 0.4 (0.0-1.8) % Lymph # (Auto) 0.9 L (1.2-5.4) K/mm3 [place] # (Auto) 0.1 (0.0-0.8) K/mm3 Eos # (Auto) 0.0 (0.0-0.4) K/mm3 Baso # (Auto) 0.0 (0.0-0.1) K/mm3 Seg Neutrophils % 75.6 H (40.0-70.0) % Seg Neutrophils # 3.1 (1.8-7.7) K/mm3 Sodium 133 L (137-145) mmol/L Potassium 3.1 L (3.6-5.0) mmol/L Chloride 93.7 L (98-107) mmol/L Carbon Dioxide 25 (22-30) mmol/L Anion Gap 17 mmol/L BUN 12 (7-17) mg/dL Creatinine 1.0 (0.6-1.2) mg/dL Estimated GFR > 60 ml/min BUN/Creatinine Ratio 12 % Glucose 102 H (65-100) mg/dL Lactic Acid 0.70 (0.7-2.0) mmol/L Calcium 8.3 L (8.4-10.2) mg/dL Total Bilirubin 0.50 (0.1-1.2) mg/dL AST 52 H (5-40) units/L ALT 31 (7-56) units/L Alkaline Phosphatase 91 (35-129) units/L Total Protein 7.2 (6.3-8.2) g/dL Albumin 3.9 (3.9-5) g/dL Albumin/Globulin Ratio 1.2 % - Medical Decision Making Cdx: Lupus flareup Ddx dehydration, electrolyte abnormality, cellulitiits, allergic conjuctivits I will get CBC, BMP, IV fluids I will give IV Toradol and IV Zofran for the patient's nausea Critical care attestation.: If time is entered above; I have spent that time in minutes in the direct care of this critically ill patient, excluding procedure time. ED Disposition Clinical Impression: Exacerbation of systemic lupus Conjunctivitis, left eye Qualifiers: Conjunctivitis type: chronic Chronic conjunctivitis type: unspecified Qualified Code(s): H10.402 - Unspecified chronic conjunctivitis, left eye Disposition: - TO HOME OR SELFCARE Is pt being admited?: No Does the pt Need Aspirin: No Condition: Stable Prescriptions: predniSONE [Deltasone] 20 mg PO BID #10 tab Naproxen 375 mg PO BID #20 tablet Referrals: BEST TORO MD [Staff Physician] - 3-5 Days
[2021-04-20 22:08] LABS: Basophils % (Auto) 0.4 % (0.0-1.8); Hematocrit 32.5 % (30.3-42.9); Hemoglobin 11.6 gm/dl (10.1-14.3); Lymphocytes # (Auto) 0.9 K/mm3 (1.2-5.4); Lymphocytes % (Auto) 21.2 % (13.4-35.0); Mean Corpuscular HGB Conc 36 % (30-34); Mean Corpuscular Volume 71 fl (79-97); Monocytes # (Auto) 0.1 K/mm3 (0.0-0.8); Monocytes % (Auto) 2.8 % (0.0-7.3); Platelet Count 221 K/mm3 (140-440); Red Blood Count 4.59 M/mm3 (3.65-5.03); Red Cell Distribution Width 18.7 % (13.2-15.2)
[2021-04-20 22:26] LABS: Alanine Aminotransferase 31 units/L (7-56); Albumin 3.9 g/dL (3.9-5); BUN/Creatinine Ratio 12; Blood Urea Nitrogen 12 mg/dL (7-17); Calcium 8.3 mg/dL (8.4-10.2); Hemolysis Index 0
[2021-04-20] MEDS ORDERED: ACETAMINOPHEN 500 MG TAB PO ONE (22:26)
[2021-04-21 01:07] VITALS: BP 122/77
== END 2021-04-21 01:05 | disposition home or self-care (01) ==
LOC: ED 17:36
DX: M32.9 Systemic lupus erythematosus, unspecified (principal); H10.402 Unspecified chronic conjunctivitis, left eye; I10 Essential (primary) hypertension; F17.200 Nicotine dependence, unspecified, uncomplicated; Z98.890 Other specified postprocedural states; Z79.899 Other long term (current) drug therapy
CPT/HCPCS: 36415; 80053; 82140; 85025; 96361; 96374; 96375; 99283; J1100; J1885; J7030